=== PATIENT | female | born 1950 | race American Indian/Alaskan Native ===

== ENCOUNTER 2017-03-31 00:07 | Emergency (ER) | payer SELFPAY ==
[2017-03-31 00:27] VITALS: BP 129/82
[2017-03-31] MEDS ORDERED: BENADRYL PO ONE ×2 (01:24→01:30)
== END 2017-03-31 02:02 | disposition left against medical advice (07) ==
LOC: ED 00:07
DX: T78.40XA Allergy, unspecified, initial encounter (principal); Z53.21 Procedure and treatment not carried out due to patient leaving prior to being seen by health care provider